=== PATIENT | female | born 1995 | race Two or more races ===

== ENCOUNTER 2023-07-26 21:04 | Outpatient (CLI) | payer OTHER ==
[~2023-07-26] VITALS: Ht 154.9 cm; Wt 64.0 kg
[2023-07-26 21:18] VITALS: BP 131/81
== END 2023-07-26 22:49 | disposition home or self-care (01) ==
LOC: M LDO 21:04
PROVIDERS: ATTEND Obstetrics & Gynecology
DX: O47.03 False labor before 37 completed weeks of gestation, third trimester (principal); Z3A.38 38 weeks gestation of pregnancy
CPT/HCPCS: 59025; G0463

== ENCOUNTER 2023-07-28 07:34 | Inpatient (IN) | payer OTHER ==
[~2023-07-28] VITALS: Ht 154.9 cm; Wt 63.4 kg
[2023-07-28] VITALS (23 sets, daily range): BP systolic 105–139; BP diastolic 58–86; O2SAT 96
[2023-07-28] MEDS ORDERED: PRENTAB9 PO ×2 (07:55)
[2023-07-28] MEDS ORDERED: IRON1TAB2 PO (07:57)
[2023-07-28] MEDS ORDERED: LIDOCAINE 1% MDV 20ML VIAL INFIL PRN (08:35)
[2023-07-28] MEDS ORDERED: CARBOPROST TROMETHAMINE 250 MCG/ML AMP IM PRN (08:35)
[2023-07-28] MEDS ORDERED: LACTATED RINGER'S 1000 ML IV STA (08:35)
[2023-07-28] MEDS ORDERED: METHYLERGONOVINE MALEATE 0.2MG/ML 1ML VIAL IM PRN (08:35)
[2023-07-28] MEDS ORDERED: OXYTOCIN INJ 10UNITS/ML 1ML VIAL IM PRN (08:35)
[2023-07-28] MEDS ORDERED: TRANEXAMIC ACID INJection 1,000 MG in NS 100 ML IV PRN (08:35)
[2023-07-28] MEDS ORDERED: OXYTOCIN DRIP 30 UNITS in IV 1 EA IV PRN ×6 (08:35)
[2023-07-28] MEDS ORDERED: LR 1,000 ML IV SCH (08:35)
[2023-07-28 08:39] LABS: HEMATOCRIT 34.1 % (36.0-47.0); HEMOGLOBIN 11.2 g/dl (12.0-15.5); MEAN CORPUSCULAR HEMOGLOBIN 25.7 pg (27.0-33.0); MEAN CORPUSCULAR HGB CONC 32.8 g/dl (32.0-36.5); MEAN CORPUSCULAR VOLUME 78.2 fl (80.0-96.0); PLATELET COUNT, AUTOMATED 214 10^3/uL (150-450); RED BLOOD COUNT 4.36 10^6/uL (4.00-5.40); WHITE BLOOD COUNT 10.7 10^3/uL (4.0-10.0)
[2023-07-28 10:16] LABS: TOTAL PROTEIN,RANDOM URINE 11.2 MG/DL (0.0-14.0)
[2023-07-28 10:21] LABS: CREATININE,RANDOM URINE 39.4 MG/DL
[2023-07-28] MEDS ORDERED: ONDANSETRON 4MG 2ML VIAL IV PRN (11:50)
[2023-07-28] MEDS ORDERED: FENTANYL/ROPIVACAINE/NACL BAG 100 ML EPIDURAL SCH (11:50)
[2023-07-28] MEDS ORDERED: EPIDURAL/PCA KEYS XX PRN (11:50)
[2023-07-28] MEDS ORDERED: diphenhydrAMINE 50MG/ML VIAL IV PRN (11:50)
[2023-07-28] MEDS ORDERED: ePHEDrine SULFATE 25 MG/5 ML(5MG/ML) SYRINGE IVP PRN (11:50)
[2023-07-28] MEDS ORDERED: NALOXONE INJ 0.4MG/1ML VIAL IV PRN (11:50)
[2023-07-28] MEDS ORDERED: LR 500 ML IV PRN (11:50)
[2023-07-28] MEDS ORDERED: ALBUTEROL 90 MCG/ACT 8GM HFA INHALER INH PRN (14:45)
[2023-07-28] MEDS ORDERED: DIBUCAINE 1% OINTMENT 30GM TOP PRN (14:45)
[2023-07-28] MEDS ORDERED: RHOGAM 300MCG (1500IU) INJ IM SCH (14:45)
[2023-07-28] MEDS ORDERED: OXYTOCIN DRIP 30 UNITS in IV 1 EA IV SCH ×4 (14:45)
[2023-07-28] MEDS: LR 1,000 ML IV SCH ×2 (14:45→22:45)
[2023-07-28] MEDS ORDERED: DOCUSATE SODIUM 100MG CAPSULE PO PRN (14:45)
[2023-07-28] MEDS ORDERED: IBUPROFEN 600MG TAB PO PRN (14:45)
[2023-07-28] MEDS ORDERED: ACETAMINOPHEN TAB 650MG DOSE (2X325MG) PO PRN (14:45)
[2023-07-28] MEDS ORDERED: ACETAMINOPHEN 500 MG TAB PO PRN (14:45)
[2023-07-28] MEDS ORDERED: ANUSOL HC CREAM 30GM TOP PRN (14:45)
[2023-07-28] MEDS ORDERED: MOM 30ML SUSPENSION UDC PO PRN (14:45)
[2023-07-28] MEDS ORDERED: METHYLERGONOVINE MALEATE 0.2 MG TAB PO PRN (14:45)
[2023-07-28] MEDS: IBUPROFEN 800 MG TAB PO PRN (17:46)
[2023-07-29 06:00] VITALS: BP 120/83; O2SAT 100
[2023-07-29] MEDS ORDERED: INFLUENZA QUADRIVALENT PF VACCINE 0.5ML SYRINGE IM.IMMUN ONE (09:00)
[2023-07-29] MEDS ORDERED: PRENATAL VITAMINS CHEWABLE TABLET PO SCH (09:00)
[2023-07-29] MEDS: IBUPROFEN 800 MG TAB PO PRN (13:44)
[2023-07-30] MEDS ORDERED: MEASLES,MUMPS,RUBELLA VACCINE INJ (MMR-II) SC.IMMUN ONE (09:00)
== END 2023-07-29 13:40 | disposition home or self-care (01) | DRG 807 ==
LOC: M LDO 07:34 → M LDI 08:06 → M OBS 17:30
PROVIDERS: ADMIT Obstetrics & Gynecology; ATTEND Obstetrics & Gynecology
PROC: 10E0XZZ Delivery of Products of Conception, External Approach (ICD-10-PCS; principal; 2023-07-28)
PROC: 10907ZC Drainage of Amniotic Fluid, Therapeutic from Products of Conception, Via Natural or Artificial Opening (ICD-10-PCS; 2023-07-28)
DX: O64.5XX0 Obstructed labor due to compound presentation, not applicable or unspecified (principal); Z37.0 Single live birth; Z3A.38 38 weeks gestation of pregnancy